=== PATIENT | female | born 1980 | race Caucasian/White ===

== ENCOUNTER 2020-10-03 15:15 | Emergency (ER) | payer BC, OTHER ==
[~2020-10-03] VITALS: Ht 167.6 cm; Wt 102.1 kg
[~2020-10-03 15:15] MED LIST: Z.0.CIPROFLOXACIN500 PO; Z.0.NORCO 5-325 TA1 PO; [UNRECOGNIZED DRUG - OTHER] GT
[2020-10-03] MEDS ORDERED: SODIUM CHLORIDE 0.9% 1000ML 1,000 ML IV STA (15:26)
[2020-10-03] MEDS ORDERED: METOCLOPRAMIDE HCL 10 MG/2ML VIAL IV NR (15:30)
[2020-10-03] MEDS ORDERED: LORAZEPAM INJ 2 MG/ML VIAL ONE (15:41)
[2020-10-03] MEDS ORDERED: KETOROLAC TROMETHAMINE 30 MG/ML VIAL ONE (15:41)
[2020-10-03] MEDS ORDERED: METOCLOPRAMIDE HCL 10 MG/2ML VIAL ONE (15:42)
[2020-10-03] MEDS ORDERED: DIPHENHYDRAMINE HCL INJ 50 MG/ML VIAL ONE (15:42)
[2020-10-03] MEDS ORDERED: PROMETHAZINE HCL (IM) 25 MG/ML VIAL IM ONE (15:42)
[2020-10-03] MEDS ORDERED: SODIUM CHLORIDE 0.9% 1000ML 1,000 ML ONE (15:42)
[2020-10-03] MEDS ORDERED: DIPHENHYDRAMINE HCL INJ 50 MG/ML VIAL IV ONE (15:45)
[2020-10-03] MEDS ORDERED: LORAZEPAM INJ 2 MG/ML VIAL IV ONE (15:45)
[2020-10-03 15:59] LABS: BASOPHILS # (AUTO) 0.1 (0.0-0.1); BASOPHILS % 0.9 % (0.0-1.0); EOSINOPHILS # (AUTO) 0.1 (0.0-0.4); EOSINOPHILS % 1.8 % (0.0-6.0); HEMATOCRIT 40.5 % (34.2-44.1); HEMOGLOBIN 13.4 g/dL (12.0-16.0); LYMPHOCYTES # (AUTO) 1.6 (1.0-3.2); LYMPHOCYTES % 23.8 % (18.0-39.1); MEAN CORPUSCULAR HGB CONC 33.1 g/dL (31-35); MEAN CORPUSCULAR VOLUME 84.7 fL (81-99); MONOCYTES # (AUTO) 0.4 (0.2-0.8); MONOCYTES % 6.1 % (4.4-11.3); NEUTROPHILS # (AUTO) 4.5 (2.1-6.9); NEUTROPHILS % 67.2 % (38.7-80.0); PLATELET COUNT 428 x10e3/uL (140-360); RED BLOOD COUNT 4.78 x10e6/uL (3.6-5.1); RED CELL DISTRIBUTION WIDTH 12.5 % (11.7-14.4)
[2020-10-03] MEDS ORDERED: KETOROLAC TROMETHAMINE 30 MG/ML VIAL IV NR (16:00)
[2020-10-03 16:10] LABS: ALANINE AMINOTRANSFERASE 15 IU/L (0-55); ALBUMIN 4.1 g/dL (3.5-5.0); ALBUMIN/GLOBULIN RATIO 1.3 (0.8-2.0); ALKALINE PHOSPHATASE 50 IU/L (40-150); BLOOD UREA NITROGEN 14 mg/dL (7-26); BUN/CREATININE RATIO 17 (6-25); CALCIUM 9.3 mg/dL (8.4-10.2); CARBON DIOXIDE 24 mmol/L (22-29); CHLORIDE 109 mmol/L (98-107); CREATININE, SERUM 0.84 mg/dL (0.57-1.11); EST GLOMERULAR FILTRATION RATE 76 ML/MIN (60-); GLUCOSE 94 mg/dL (74-118); SODIUM 142 mmol/L (136-145)
[2020-10-03] MEDS ORDERED: LORAZEPAM INJ 2 MG/ML VIAL IV NR (16:45)
== END 2020-10-03 17:00 | disposition home or self-care (01) ==
LOC: ER 15:27
DX: G44.209 Tension-type headache, unspecified, not intractable (principal); K21.9 Gastro-esophageal reflux disease without esophagitis
CPT/HCPCS: 36415; 70450; 80053; 84702; 85025; 99284; J1200; J1885; J2060; J2550; J2765; J7030

== ENCOUNTER 2022-08-29 21:22 | Emergency (ER) | payer BC ==
[~2022-08-29] VITALS: Ht 167.6 cm; Wt 102.1 kg
[2022-08-29 22:10] LABS: BASOPHILS # (AUTO) 0.1 (0.0-0.1); BASOPHILS % 0.9 % (0.0-1.0); EOSINOPHILS # (AUTO) 0.2 (0.0-0.4); EOSINOPHILS % 2.6 % (0.0-6.0); HEMATOCRIT 37.9 % (34.2-44.1); HEMOGLOBIN 12.1 g/dL (12.0-16.0); LYMPHOCYTES # (AUTO) 1.7 (1.0-3.2); LYMPHOCYTES % 21.4 % (18.0-39.1); MEAN CORPUSCULAR HEMOGLOBIN 27.8 pg (28-32); MEAN CORPUSCULAR HGB CONC 31.9 g/dL (31-35); MEAN CORPUSCULAR VOLUME 86.9 fL (81-99); MONOCYTES # (AUTO) 0.5 (0.2-0.8); MONOCYTES % 5.9 % (4.4-11.3); NEUTROPHILS # (AUTO) 5.5 (2.1-6.9); PLATELET COUNT 397 x10e3/uL (140-360); RED BLOOD COUNT 4.36 x10e6/uL (3.6-5.1); RED CELL DISTRIBUTION WIDTH 12.8 % (11.7-14.4)
[2022-08-29] MEDS ORDERED: SODIUM CHLORIDE FLUSH 10 ML SYR IV PRN (22:15)
[2022-08-29 22:26] LABS: ALANINE AMINOTRANSFERASE 12 IU/L (0-55); ALBUMIN 3.8 g/dL (3.5-5.0); ALBUMIN/GLOBULIN RATIO 1.2 (0.8-2.0); ALKALINE PHOSPHATASE 55 IU/L (40-150); ANION GAP 11.9 mmol/L (8-16); BLOOD UREA NITROGEN 14 mg/dL (7-26); BUN/CREATININE RATIO 16 (6-25); CALCIUM 8.8 mg/dL (8.4-10.2); CARBON DIOXIDE 25 mmol/L (22-29); CHLORIDE 107 mmol/L (98-107); CREATINE KINASE 87 IU/L (29-168); CREATININE, SERUM 0.85 mg/dL (0.57-1.11); GLUCOSE 89 mg/dL (74-118); POTASSIUM 3.9 mmol/L (3.5-5.1); SODIUM 140 mmol/L (136-145)
[2022-08-30 00:37] VITALS: BP 158/85; PULSE 50; RESP 19; TEMP 98.8; O2SAT 100
== END 2022-08-30 00:43 | disposition home or self-care (01) ==
LOC: ER 21:30
DX: R00.2 Palpitations (principal); I10 Essential (primary) hypertension; R94.31 Abnormal electrocardiogram [ECG] [EKG]
CPT/HCPCS: 36415; 71046; 80053; 82550; 84484; 84702; 85025; 93005; 99284